=== PATIENT | female | born 1960 | race Caucasian/White ===

== ENCOUNTER 2016-12-25 16:00 | Inpatient (IN) | payer MEDICARE, MEDICAID ==
[~2016-12-25] VITALS: Ht 165.1 cm; Wt 122.0 kg
--- NOTE | ~2016-12-25 | DS ---
PATIENT'S NAME: FLORINDA CASTAÑEDA [facility] AGE: 56 Y [address] ROOM: [id number] [place], [place] [address] LOCATION: GPCU ADMIT DATE: 12/25/2016 Discharge Summary DISCHARGE DATE: 12/27/2016 FAMILY PHYSICIAN: Elizabeth St APRN ATTENDING PHYSICIAN: Donnie WATERS PRINCIPAL DIAGNOSES: 1. Rlfyn-if-nuuxeuy hypoxic respiratory failure. 2. Acute chronic obstructive pulmonary disease exacerbation. 3. Community-acquired pneumonia. 4. Type 2 diabetes mellitus. 5. Obesity. 6. Tobaccoism. 7. Hyperlipidemia. 8. Hypertension. HOSPITAL COURSE: A 56-year-old lady with a past medical history of severe COPD on 2 L of oxygen at nighttime presented to the outside facility with an increased shortness of breath, cough, and fever. An x-ray was done, which did show a nodule and then later a CAT scan was obtained, which did show community- acquired pneumonia in the upper lobe of the right lung. She was transferred here for further medical care. She was admitted to the hospital and obtained blood cultures, sputum cultures, as well as urine antigen for Legionella as well as streptococcal. She was started on COPD exacerbation protocol including DuoNebs, Symbicort, as well as oral steroids. She progressed well during the course of the hospitalization with tapering of her oxygen requirement. She will be sent home on Levaquin for 4 more days as well as prednisone for 4 more days. Of note, she was found to have bilateral adrenal hyperplasia on the CAT scan. These could be likely adrenal adenomas/hyperplasia, which needs to be worked up and cannot be done in the hospital based on the fact that she got steroid treatment. It was explained to the patient that she is going to follow up with her primary care physician, Elizabeth St, to follow up on this in 2 weeks. DISCHARGE MEDICATIONS: Include: 1. Amlodipine 10 mg p.o. everyday. 2. Aspirin 81 mg p.o. everyday. 3. Lipitor 20 mg p.o. everyday. 4. Metformin 500 mg p.o. everyday. 5. Prednisone 20 mg p.o. twice daily for 4 more days. 6. Levaquin 750 mg p.o. once daily for 4 more days. 7. Albuterol 1 vial inhalation 3 times daily. 8. Atrovent 2 puffs inhalation every 4 hours p.r.n. PATIENT'S NAME: FLORINDA CASTAÑEDA [facility] AGE: 56 Y [address] ROOM: [id number] [place], [place] [address] LOCATION: GPCU ADMIT DATE: 12/25/2016 Discharge Summary DISCHARGE DATE: 12/27/2016 FAMILY PHYSICIAN: Elizabeth St APRN ATTENDING PHYSICIAN: Donnie WATERS 9. Januvia 100 mg p.o. everyday. 10. Multivitamin 1 tablet p.o. everyday. 11. Symbicort 164.5 mcg inhalation 2 puffs inhalation everyday. PROGRESS NOTE ON THE DAY OF THE DISCHARGE: SUBJECTIVE: The patient said she is feeling much better, does not have any shortness of breath, no palpitation or chest pain, no fever. OBJECTIVE: VITAL SIGNS: Blood pressure 132/66, respiratory rate of 18, pulse of 66, temperature 97.9, she was satting 94% on 2 L of oxygen which we turned it down to 0, and she was still satting fine. GENERAL: No acute distress. Alert and oriented x3. HEAD: Atraumatic, normocephalic. EYES: Nonicteric. No pallor. OROPHARYNX: Moist mucous membranes. CARDIOVASCULAR: S1, S2. No murmurs, gallops, or rubs. LUNGS: Equal air entry bilaterally. Scattered occasional expiratory wheezes. No crepitations or rhonchi noted. EXTREMITIES: Obese, but no clubbing or cyanosis noted. LABORATORY DATA: On the day of the discharge, creatinine was 0.9, sodium 139, potassium 4.8, chloride 102, bicarb of 32, and calcium 8.9. Procalcitonin was less than 0.05. HEMODYNAMICS ON DISCHARGE: Stable. DIET: Diabetic diet. ACTIVITY: As tolerated. FOLLOW UP: Follow up with primary care physician in 2 weeks. I spent 35 minutes in discharge planning and coordinating care regarding the workup of her adrenal adenomas. MD KULDEEP GRAFF/se /[id number] d: 12/28/16 0259 t: 12/30/16 1521, DISCHARGE SUMMARY
--- NOTE | ~2016-12-25 | HP ---
PATIENT'S NAME: FLORINDA CASTAÑEDA [facility] AGE: 56 Y [address] ROOM: [place] [address] LOCATION: GPCU ADMIT DATE: 12/25/2016 History & Physical DISCHARGE DATE: FAMILY PHYSICIAN: ALLAN DAILEY APRN ATTENDING PHYSICIAN: Donnie WATERS DATE OF SERVICE: CHIEF COMPLAINT: Shortness of breath. HISTORY OF PRESENT ILLNESS: The patient is a 56-year-old female with a past medical of history of severe COPD, diabetes mellitus, type 2, hypertension, and obesity who presents here with shortness of breath from [facility]. The patient reports that for the past few days, she has been experiencing worsening of shortness of breath. She uses 3 L of oxygen as needed. However, was noted to require more oxygen. The patient also reports of nonproductive cough and chills. She also reports increased wheezing and dyspnea on exertion. The patient was seen at [facility] and was found to have oxygen saturation in the low 80s on 3 L. The patient was given bronchodilator with significant improvement of oxygenation to O2 sat in the 89. The patient had a chest x-ray done that shows right upper lobe possible nodule. CT was done that shows right upper lobe consolidation. The patient was transferred here for further care for pneumonia and COPD exacerbation. The patient denies chest pain, abdominal pain, nausea, vomiting, fever, diarrhea, sick contacts, and production of sputum. The patient reports that last time she was admitted for COPD exacerbation was 7 years ago and has not had any recent admission. She also denies history of mechanical intubation. PAST MEDICAL HISTORY: 1. Diabetes mellitus, type 2. 2. COPD. 3. Hypertension. 4. Hyperlipidemia. 5. Obesity. PAST SURGICAL HISTORY: The patient had bilateral total knee, had left-sided nephrectomy due to benign mass, cataract surgery, and cholecystectomy. FAMILY HISTORY: 1. Father had stomach cancer. 2. Mother had cancer of unknown etiology. PATIENT'S NAME: DA CASTAÑEDAA Mary [facility] AGE: 56 Y [address] ROOM: [place] [address] LOCATION: GPCU ADMIT DATE: 12/25/2016 History & Physical DISCHARGE DATE: FAMILY PHYSICIAN: ALLAN DAILEY APRN ATTENDING PHYSICIAN: Donnie WATERS SOCIAL HISTORY: The patient is a current smoker and seldomly drinks. The patient is currently not working and is on disability due to COPD. REVIEW OF SYSTEMS: All systems have been reviewed and are negative except for mentioned in the HPI. PHYSICAL EXAMINATION: VITAL SIGNS: The patient is afebrile, blood pressure 139/68, heart rate of 80, respiratory rate of 16, and oxygenation 95% on 4 L. GENERAL APPEARANCE: The patient is comfortably lying on bed in no acute distress. HEAD: Normocephalic, atraumatic. EYES: Extraocular muscle intact. NOSE: No nasal discharge. EARS: No ear discharge. MOUTH: Oral mucosa moist. CHEST: Witq-oa-zykygtom expiratory wheezing. No rales and rhonchi heard. ABDOMEN: Soft, nontender, and nondistended. Bowel sounds present. HEART: Regular rate and rhythm. No murmurs, rubs, or gallops. SKIN: Warm to touch. MUSCULOSKELETAL: Range of motion intact. No obvious joint effusion noted. [employer]ECT [employer]NER: Alert and oriented x3. Motor and sensory grossly intact. LABORATORY DATA: Labs drawn from [facility] shows sodium of 140, potassium 4.8, BUN of 11, creatinine 0.93, and blood glucose of 138. White blood cell count of 8.6, hemoglobin 12.6, and platelet of 284. ASSESSMENT AND PLAN: 1. Bjssu-vb-jvtuuse hypoxic respiratory failure, etiology secondary to community-acquired pneumonia and chronic obstructive pulmonary disease. The patient is presenting from outside hospital with CT finding of right upper lobe infiltrate and chronic obstructive pulmonary disease exacerbation. We will start the patient on Levaquin 750 mg intravenous daily. Blood culture is pending. We will acquire sputum culture and urine antigen for Legionella and strep. We will continue with bronchodilator. Schedule bronchodilator q.4 h. Also, start with the patient on Solu-Medrol 40 mg IV b.i.d. Current ABG shows pH of 7.39, pCO2 63, and pO2 of 58 with a bicarb of 38.1. The patient is stable, we will continue 4 L of oxygen to keep oxygen sat between 88% and 92%. 2. Acute chronic obstructive pulmonary disease exacerbation. Etiology most likely secondary to community-acquired pneumonia. Please see acute-on- chronic hypoxic respiratory failure, etiology secondary to community- PATIENT'S NAME: FLORINDA CASTAÑEDA [facility] AGE: 56 Y [address] ROOM: [id number] [place], [place] [address] LOCATION: [facility] ADMIT DATE: 12/25/2016 History & Physical DISCHARGE DATE: FAMILY PHYSICIAN: ALLAN DAILEY APRN ATTENDING PHYSICIAN: Donnie WATERS acquired pneumonia and chronic obstructive pulmonary disease. 3. CT chest done there shows resection of adrenal, which shows bilateral possible adrenal adenoma. We will hold workup as the patient is not stable and the patient is going to be on steroid treatment. To have adrenal adenoma workup when the patient is stable or as outpatient. To follow the patient closely. 4. Community-acquired pneumonia. See [id number] hypoxic respiratory failure, etiology secondary to community-acquired pneumonia and chronic obstructive pulmonary disease. 5. Hypertension, stable, continue amlodipine. 6. Obesity, ongoing. 7. Tobacco use and tobacco counseling. Greater than 3 minutes and less than 10 minutes was spent on the patient on tobacco cessation. The patient is currently ready to stop use of smoking. We will offer the patient nicotine patch. 8. Chronic hypoxic respiratory failure, secondary to chronic obstructive pulmonary disease with severe chronic obstructive pulmonary disease with FEV1 of 31% predicted. Greater than 50 minutes was spent on the patient's care and 50% of time spent on direct the patient's care. Assessment and plan was discussed with the patient and nursing staff. We will admit the patient for [id number]-mpqgwce hypoxic respiratory failure, secondary to community-acquired pneumonia and COPD exacerbation. We will admit the patient as an inpatient due to comorbidity of community-acquired pneumonia and COPD exacerbation requiring a new level of oxygen. Code status discussion the patient is full code on admission. MD RUTH ANN FRAGA/se /[id number] D: 037 T: HISTORY & PHYSICAL
[2016-12-25] MEDS ORDERED: NORVASC10 MG PO (16:51)
[2016-12-25] MEDS ORDERED: ALBUTEROL2.5 MG/31 INH (16:51)
[2016-12-25] MEDS ORDERED: LIPITOR20 M1 PO (16:52)
[2016-12-25] MEDS ORDERED: ASPIRIN LO-DOSE81 MG PO (16:52)
[2016-12-25] MEDS ORDERED: ATROVENT HFA12.9 G1 INH (16:52)
[2016-12-25] MEDS ORDERED: JANUVIA 100 MG100 MG PO (16:53)
[2016-12-25] MEDS ORDERED: GLUCOPHAGE500 MG PO (16:53)
[2016-12-25] MEDS ORDERED: THERAGRAN-M1 TAB PO (16:53)
[2016-12-25] MEDS ORDERED: SYMBICORT 16010.2 GM INH (16:53)
[2016-12-25 17:01] LABS: BASOPHIL % 0.3 %; EOSINOPHIL # 0.1 K/uL (0.0-0.5); EOSINOPHIL % 0.7 %; HEMATOCRIT 41.9 % (33.0-46.0); HEMOGLOBIN 12.2 g/dL (10.0-15.0); IMMATURE GRANULOCYTE % 0.3 %; LYMPHOCYTE # 1.6 K/uL (0.8-4.0); LYMPHOCYTE % 16.9 %; MCH 24.7 pg (27.0-34.0); MCHC 29.1 gm/dL (32.0-36.5); MONOCYTE # 0.6 K/uL (0.0-1.0); MONOCYTE % 6.1 %; MPV 9.4 fl (9.4-12.4); NEUTROPHIL # (ANC) 7.3 K/uL (1.8-7.8); NEUTROPHIL % 75.7 %; NRBC % 0 /100WBC (0-0.00); PLATELET COUNT 278 K/uL (150-450); RBC 4.93 M/uL (3.50-5.50); RDW-CV 17.4 % (11.9-14.6); WBC 9.7 K/uL (4.0-11.0)
[2016-12-25 17:07] LABS: BICARBONATE 38.1 mmol/L (18.0-23.0); PCO2 63 mmHg (35-45); PO2 58 mmHg (80-90)
[2016-12-27 03:44] LABS: ANION GAP 9.8 (10.0-19.0); BLOOD UREA NITROGEN 22 mg/dL (6-24); CALCIUM 8.9 mg/dL (8.5-10.5); CHLORIDE 102 mMol/L (96-110); CO2 32 mMol/L (22-32); CREATININE 0.9 mg/dL (0.5-1.1); ESTIMATED GFR (MDRD EQUATION) > 60; MAGNESIUM 2.2 mg/dL (1.8-2.6); PHOSPHORUS 3.1 mg/dL (2.5-4.9); POTASSIUM 4.8 mMol/L (3.7-5.1); SODIUM 139 mMol/L (135-145)
[2016-12-27] MEDS ORDERED: LEVAQUIN750 MG PO (11:30)
[2016-12-27] MEDS ORDERED: DELTASONE20 MG PO (11:32)
== END 2016-12-27 13:30 | disposition disaster alternative care site (69) | DRG 190 ==
LOC: GPCU 16:09
PROVIDERS: Internal Medicine; ADMIT Internal Medicine
PROC: 3E0F7GC Introduction of Other Therapeutic Substance into Respiratory Tract, Via Natural or Artificial Opening (ICD-10-PCS; principal; 2016-12-25)
DX: J44.0 Chronic obstructive pulmonary disease with (acute) lower respiratory infection (principal); J18.9 Pneumonia, unspecified organism; J96.21 Acute and chronic respiratory failure with hypoxia; Z68.41 Body mass index [BMI] 40.0-44.9, adult; J44.1 Chronic obstructive pulmonary disease with (acute) exacerbation; D35.00 Benign neoplasm of unspecified adrenal gland; E66.9 Obesity, unspecified; E78.5 Hyperlipidemia, unspecified; I10 Essential (primary) hypertension; Z72.0 Tobacco use; E11.9 Type 2 diabetes mellitus without complications
CPT/HCPCS: J1644; J1956; J2920; J7050; J7512